=== PATIENT | male | born 1970 | race Caucasian/White ===

== ENCOUNTER 2016-08-26 18:36 | Emergency (ER) | payer OTHER ==
[~2016-08-26] VITALS: Ht 188 cm; Wt 72.7 kg
[~2016-08-26 18:36] MED LIST: NOMED
[2016-08-26 18:53] VITALS: BP 154/92; PULSE 72; RESP 16; O2SAT 99
--- NOTE | 2016-08-26 19:03 | ED.REPORT ---
HPI-Rash / Abscess Date of Service Aug 26, 2016 ED Provider: Eduardo Moran MD Pt is a 46 year old male with a history of IV heroin abuse who presents to the ED via police with concerns for rashes about his extremities. He reports that he was brought to the ED by police officers to be cleared to go to [facility]. He reports occasional subjective fever, but denies any other symptoms. He reports these rashes have come from extensive IV drug usage. Nursing Notes Stated Complaint: FIT FOR USP Chief Complaint: Skin Rash/Abscess Nursing Notes Reviewed: Yes Allergies: Coded Allergies: No Known Allergies (Verified , 08/26/16) Scheduled Cephalexin (Keflex) 500 Mg Capsule 500 MG PO QID Sulfamethoxazole/Trimeth 800-160 mg (Bactrim DS) 1 Each Tablet 1 TABLET PO BID Miscellaneous Medications No Historical Medication (No Historical Medication) Ea General Time Seen by MD: 19:01 Chief Complaint Abscess, Rash Hx Obtained From: Patient, Police Arrived By: Walk-in Onset Occurred: Onset unknown Symptom Duration: Since onset Location: : Arm: Lower extremity Quality: Painful Severity: Current: Mild Severity: Maximum: Mild Similar Sx Previous: Yes Past Medical History Social History Drug Use: IV drugs Ambulatory Status Independent Review of Systems Constitutional: Reports: Fever, Denies: Chills, Malaise, Weakness - generalized Respiratory: Denies: Non-productive cough, Shortness of breath, Wheezing Cardiovascular: Denies: Chest pain, Syncope GI: Denies: Abdominal pain, Constipation, Diarrhea, Nausea, Vomiting Musculoskeletal: Reports: Extremity pain, Denies: Back pain Skin: Reports Rash Complete sys rev & neg: except as marked. Physical Exam Areas of healing soft tissue destruction about bilateral anterior forearms Scant superficial pustules about right forearm. No fluctuance or induration. Mild erythema. No palpable evidence of abscess. Additional skin destruction about right calf, additional palm size region of skin breakdown. Scant purulence. No erythema or induration. Initial Vital Signs Vital Signs (First) Date Time Temp Pulse Resp B/P Pulse Ox O2 Delivery O2 Flow Rate FiO2 08/26/16 18:53 36.7 72 16 154/92 99 Room Air Initial VS: Reviewed Head / Eyes: Atraumatic, Normocephalic, PERRL ENT: Mucous membranes moist, Conjunctiva normal, No scleral icterus Neck: Supple, Non-tender, Full range of motion Respiratory: Breath sounds normal, Clear to auscultation, No respiratory distress Neurologic: Alert, Oriented, Nonfocal General/Constitutional: Awake, Alert, Cooperative Skin: Dry Rash / Lesion Notes: Areas of healing soft tissue destruction about bilateral anterior forearms Scant superficial pustules about right forearm. No fluctuance or induration. Mild erythema. No palpable evidence of abscess. Additional skin destruction about right calf, additional palm size region of skin breakdown. Scant purulence. No erythema or induration. Re-Eval/Medical Decision Med Decision/Clinical Course Pt is a 46 year old male with a history of IV heroin abuse who presents to the ED via police with concerns for rashes about his extremities. He reports that he was brought to the ED by police officers to be cleared to go to [facility]. He reports occasional subjective fever, but denies any other symptoms. He admits that he frequently skin pops and muscles heroin. Upon arrival he is slightly hypertensive though otherwise afebrile, hemodynamically stable and nontoxic appearing. He reports that the extensive chronic wounds about his forearms and right leg are unchanged from his regular baseline. His overall presentation is consistent with skin breakdown from repeated subcutaneous and intramuscular heroin injection. He does have some mild cellulitis and superficial purulent drainage though no evidence of abscess or significant soft tissue infection or necrotizing fasciitis. There are no areas requiring incision and drainage at this time and he does not appear systemically ill. I feel that he can safely be cleared for [facility]. I have prescribed a 10 day course of Bactrim and Keflex. I advised that the only way to achieve ultimate healing is to stop injecting heroin. The patient was provided with follow-up and return precautions and discharged to police custody in stable condition. Source of Hx: Old records Re-Evaluation/Progress : Time of Eval: 19:38 Re-Evaluation/Progress Note: Pt is rechecked and informed of his diagnosis and the plan to discharge him at this time. He understands and agrees. Counseled Regarding: Diagnosis, Lab results, When/why to return to ED Discharge & Departure Impression: Primary Impression: Cellulitis Site of cellulitis: unspecified site Qualified Code: L03.90 - Cellulitis, unspecified Additional Impressions: Pustules determined by examination IV drug abuse Disposition: Home Discharge Condition All VS Reviewed: Yes Condition: Stable Additional Instructions: Thank you for seeking care at emergency room. It is difficult for us to make definitive diagnoses in the ED but we believe that you are experiencing skin breakdown from IV drug use and mild cellulitis. Our primary goal today in the ED was to evaluate you for any life-threatening conditions. Your evaluation was reassuring. You will be discharged with a prescription for antibiotics, please take as directed. You should follow-up with your primary doctor in the next week. You should return to the ED immediately if you develop increasing swelling, redness, warmth, discharge, fevers, vomiting, cough, shortness of breath, chest pain, lightheadedness, weakness or any other concerning signs or symptoms. Thank you for letting us partake in your care today. Referrals: Tian Gold MD (PCP) Josiane Attestation Portions of this note were transcribed by Flor Dodd. I, Dr. Moran personally performed the history, physical exam and medical decision-making; I reviewed and confirmed the accuracy of the information in the transcribed note. Signed by: Josiane Boss, 08/26/2016 19:38 copies to: Tian Gold MD, Beck O MD Aug 26, 2016 19:03 JANE DODD Aug 26, 2016 19:39
[2016-08-26] MEDS ORDERED: CEPH-512 PO (19:33)
[2016-08-26] MEDS ORDERED: SULF1TAB7 PO (19:33)
[2016-08-26] MEDS ORDERED: Trimethoprim-Sulfa 160 mg-800 mg Tablet PO ONE (19:35)
[2016-08-26 19:58] VITALS: BP 154/92; PULSE 72; RESP 16; O2SAT 99
== END 2016-08-26 19:59 | disposition home or self-care (01) ==
LOC: SED 18:36
DX: L03.113 Cellulitis of right upper limb (principal); F11.10 Opioid abuse, uncomplicated; R50.9 Fever, unspecified